=== PATIENT | female | born 1935 | race Caucasian/White ===

== ENCOUNTER → 2016-07-14 | Outpatient (CLI) | payer SELFPAY ==
[2012-06-29 12:25] VITALS: BP 123/72
--- NOTE | 2016-07-14 09:21 | CT ---
HISTORY: Screening Cardiac calcium scoring. Technique: Multiple axial images of the chest were obtained on a [address] from the aortic arch to the base of the heart with noncontrast prospective gating. AEC was utilized. Findings: A total calcium score of 1 is observed. The score results in very unlikely, less than 10%, likeliho od of coronary events given the age and sex matched cohort analysis. There is minimal identifiable plaque. Surrounding soft tissues are unremarkable. Mild thoracic spondylosis is noted. IMPRESSION: Minimal atherosclerotic plaque. Reported By:
== END ==
LOC: RAD 08:12
PROVIDERS: ATTEND Family Medicine
DX: Z13.6 Encounter for screening for cardiovascular disorders (principal)